=== PATIENT | female | born 1965 | race Caucasian/White ===

== ENCOUNTER 2019-02-24 14:55 | Emergency (ER) | payer OTHER ==
[~2019-02-24] VITALS: Ht 162.6 cm; Wt 75.5 kg
[2019-02-24 15:01] VITALS: Ht 162.6 cm; Wt 75.5 kg
[2019-02-24] MEDS ORDERED: STERAPRED 5MG 65 M1 PO (15:03)
[2019-02-24] MEDS ORDERED: POTASSIUM99 M1 PO (15:04)
[2019-02-24] MEDS ORDERED: PREMARIN0.9 MG (15:05)
[2019-02-24] MEDS ORDERED: FIORICET/ESGIC1 TAB PO (17:06)
[2019-02-24 17:23] VITALS: BP 130/55
== END 2019-02-24 17:24 | disposition home or self-care (01) ==
LOC: D.ER 14:55
DX: G44.309 Post-traumatic headache, unspecified, not intractable (principal)